=== PATIENT | male | born 1955 | race Caucasian/White ===

== ENCOUNTER 2018-09-28 08:30 | Emergency (ER) | payer BC ==
--- NOTE | 2018-09-28 08:37 | ER Report ---
History and Physical Time Seen By MD: 08:37 HPI/ROS CHIEF COMPLAINT: Cough, shortness breath HISTORY OF PRESENT ILLNESS: Patient is a 63-year-old male here with complaints of cough, shortness breath. Patient recently moved to the area from [place]. Patient reports wheezing, increased shortness breath especially with exertion. Patient does have a history of smoking. Patient is afebrile, hemodynamically stable at time of evaluation REVIEW OF SYSTEMS: Constitutional: No fever, no chills. Eyes: No discharge. ENT: No sore throat. Cardiovascular: No chest pain, no palpitations. Respiratory: + cough, + shortness of breath. Gastrointestinal: No abdominal pain, no vomiting. Genitourinary: No hematuria. Musculoskeletal: No back pain. Skin: No rashes. Neurological: No headache. Allergies: Coded Allergies: No Known Drug Allergies (Unverified , 09/28/18) Home Meds Reported Medications Nebivolol Hcl (BYSTOLIC) 2.5 Mg Tablet, 2.5 MG PO 09/28/18 Clopidogrel Bisulfate (CLOPIDOGREL) 75 Mg Tablet, 1 TAB PO QDAY, TAB 09/28/18 Alprazolam (ALPRAZOLAM) 0.5 Mg Tab.rapdis, 0.5 MG PO TID, TAB 09/28/18 Umeclidinium Brm/Vilanterol Tr (Anoro Ellipta 62.5-25 Mcg INH) 1 Each Disk.w.dev 09/28/18 Rosuvastatin Calcium (CRESTOR) 20 Mg Tablet, 20 MG PO QDAY 09/28/18 Tamsulosin Hcl (FLOMAX) 0.4 Mg Cap.er.24h, 0.4 MG PO, CAP 09/28/18 Finasteride (FINASTERIDE) 5 Mg Tablet, 5 MG PO QDAY 09/28/18 Constitutional Vital Sign - Last 24 Hours 09/28/18 09/28/18 08:38 08:55 Temp 98.0 Pulse 96 Resp 20 B/P (MAP) 155/87 Pulse Ox 98 O2 Delivery Room Air O2 Flow Rate 1.0 Physical Exam General Appearance: The patient is alert, has no immediate need for airway protection and no signs of toxicity. Uncomfortable appearing Eyes: Pupils equal and round no pallor or injection. ENT, Mouth: Mucous membranes are moist. Respiratory: Diffuse wheezing in all lung greene, cough Cardiovascular: Regular rate and rhythm. Gastrointestinal: Abdomen is soft and non tender, no masses, bowel sounds normal. Neurological: No focal neurological deficits on examination Skin: Warm and dry, no rashes. Musculoskeletal: Neck is supple non tender. Extremities are nontender, nonswollen and have full range of motion. DIFFERENTIAL DIAGNOSIS: After history and physical exam differential diagnosis was considered for shortness of breath including but not limited to pulmonary infectious process, COPD, asthma, pulmonary embolus and congestive heart failure. Medical Decision Making Data Points Result Diagram: 09/28/18 0845 09/28/18 0845 Laboratory Hematology Test 09/28/18 08:45 09/28/18 09:08 Red Blood Count 5.07 M/uL (4.00-5.60) Mean Corpuscular Volume 89.2 fL (80.0-96.0) Mean Corpuscular Hemoglobin 30.6 pg (26.0-33.0) Mean Corpuscular Hemoglobin Concent 34.3 g/dL (32.0-36.0) Red Cell Distribution Width 14.2 % (11.5-14.5) Mean Platelet Volume 9.5 fL (7.2-11.1) Neutrophils (%) (Auto) 65.3 % (39.4-72.5) Lymphocytes (%) (Auto) 21.6 % (17.6-49.6) Monocytes (%) (Auto) 8.8 % (4.1-12.4) Eosinophils (%) (Auto) 3.4 % (0.4-6.7) Basophils (%) (Auto) 0.9 % (0.3-1.4) Nucleated RBC Relative Count (auto) 0.1 /100WBC Neutrophils # (Auto) 5.1 K/uL (2.0-7.4) Lymphocytes # (Auto) 1.7 K/uL (1.3-3.6) Monocytes # (Auto) 0.7 K/uL (0.3-1.0) Eosinophils # (Auto) 0.3 K/uL (0.0-0.5) Basophils # (Auto) 0.1 K/uL (0.0-0.1) Nucleated RBC Absolute Count (auto) 0.01 K/uL Prothrombin Time 12.8 seconds (12.0-14.4) Prothromb Time International Ratio 0.97 Activated Partial Thromboplast Time 29 seconds (23-35) Sodium Level 139 mmol/L (137-145) Potassium Level 3.9 mmol/L (3.5-5.0) Chloride Level 103 mmol/L (98-107) Carbon Dioxide Level 25 mmol/L (22-30) Blood Urea Nitrogen 11 mg/dl (9-21) Creatinine 0.90 mg/dl (0.66-1.25) Glomerular Filtration Rate Calc > 60.0 Random Glucose 111 mg/dl (75-110) Calcium Level 9.7 mg/dl (8.4-10.2) Total Bilirubin 1.6 mg/dl (0.2-1.3) Aspartate Amino Transf (AST/SGOT) 37 U/L (0-35) Alanine Aminotransferase (ALT/SGPT) 44 U/L (0-56) Alkaline Phosphatase 91 U/L (0-126) Troponin I < 0.012 ng/ml B-Type Natriuretic Peptide 88 pg/ml (0-100) Total Protein 7.6 g/dl (6.3-8.2) Albumin 4.2 g/dl (3.5-5.0) Blood Gas Patient Temperature 98 DEGREES Venous Blood pH 7.37 (7.31-7.41) Venous Blood Partial Pressure CO2 40 mmHg Venous Blood Partial Pressure O2 40 mmHg Venous Blood HCO3 23 mmol/L Venous Blood Oxygen Saturation 73 % Venous Blood Base Excess -2 mmol/L Oxygen Liters/Minute 2l Chemistry Test 09/28/18 08:45 09/28/18 09:08 White Blood Count 7.8 k/uL (4.5-11.0) Red Blood Count 5.07 M/uL (4.00-5.60) Hemoglobin 15.5 g/dL (14.0-18.0) Hematocrit 45.2 % (42.0-52.0) Mean Corpuscular Volume 89.2 fL (80.0-96.0) Mean Corpuscular Hemoglobin 30.6 pg (26.0-33.0) Mean Corpuscular Hemoglobin Concent 34.3 g/dL (32.0-36.0) Red Cell Distribution Width 14.2 % (11.5-14.5) Platelet Count 204 K/uL (150-450) Mean Platelet Volume 9.5 fL (7.2-11.1) Neutrophils (%) (Auto) 65.3 % (39.4-72.5) Lymphocytes (%) (Auto) 21.6 % (17.6-49.6) Monocytes (%) (Auto) 8.8 % (4.1-12.4) Eosinophils (%) (Auto) 3.4 % (0.4-6.7) Basophils (%) (Auto) 0.9 % (0.3-1.4) Nucleated RBC Relative Count (auto) 0.1 /100WBC Neutrophils # (Auto) 5.1 K/uL (2.0-7.4) Lymphocytes # (Auto) 1.7 K/uL (1.3-3.6) Monocytes # (Auto) 0.7 K/uL (0.3-1.0) Eosinophils # (Auto) 0.3 K/uL (0.0-0.5) Basophils # (Auto) 0.1 K/uL (0.0-0.1) Nucleated RBC Absolute Count (auto) 0.01 K/uL Prothrombin Time 12.8 seconds (12.0-14.4) Prothromb Time International Ratio 0.97 Activated Partial Thromboplast Time 29 seconds (23-35) Glomerular Filtration Rate Calc > 60.0 Calcium Level 9.7 mg/dl (8.4-10.2) Total Bilirubin 1.6 mg/dl (0.2-1.3) Aspartate Amino Transf (AST/SGOT) 37 U/L (0-35) Alanine Aminotransferase (ALT/SGPT) 44 U/L (0-56) Alkaline Phosphatase 91 U/L (0-126) Troponin I < 0.012 ng/ml B-Type Natriuretic Peptide 88 pg/ml (0-100) Total Protein 7.6 g/dl (6.3-8.2) Albumin 4.2 g/dl (3.5-5.0) Blood Gas Patient Temperature 98 DEGREES Venous Blood pH 7.37 (7.31-7.41) Venous Blood Partial Pressure CO2 40 mmHg Venous Blood Partial Pressure O2 40 mmHg Venous Blood HCO3 23 mmol/L Venous Blood Oxygen Saturation 73 % Venous Blood Base Excess -2 mmol/L Oxygen Liters/Minute 2l Coagulation Test 09/28/18 08:45 Prothrombin Time 12.8 seconds Prothromb Time International Ratio 0.97 Activated Partial Thromboplast Time 29 seconds EKG/Imaging Imaging PATIENT NAME: Pete Ruby : 1955 MR: [id number] V: [id number] EXAM DATE: ORDERING PHYSICIAN: MAXIME BROWN TECHNOLOGIST: Location: [facility] Patient: Pete Ruby : 1955 Visit/Account:[id number] Date of Sevice: 09/28/2018 CHEST SINGLE AP Indication: Short of breath. Comparison: None available Findings: There are coarse interstitial opacities seen in the mid and lower lungs. This is symmetric from right to left. No consolidation or air bronchograms. In the acute setting, this could be related to interstitial edema/infiltrate. If chronic, this could reflect scarring and interstitial lung disease. A small round nodule is seen in the right lung base which appears calcified and characteristic of old granulomatous disease. No pneumothorax or pleural effusion. Heart size is normal. IMPRESSION: 1. Coarse interstitial opacities in the mid and lower lungs. If acute, this could be related to interstitial edema or interstitial infiltrate. This could also be related to chronic scarring and interstitial lung disease. Comparison with old studies is recommended. 2. No focal confluent infiltrate. 3. Findings most consistent with a calcified nodule in the right lung base characteristic of old granulomatous disease. ED Course/Re-evaluation ED Course Patient is a 63-year-old male here with complaints of cough, shortness breath, recently moved to the area from [place]. Patient does have a history significant for smoking, does have wheezing in all lung greene had moderate improvement with DuoNeb administration. Patient was given IV steroids. Troponin negative. Chest x-ray showed no acute consolidation. Patient was given scripts for inhaler, prednisone, Z-Arnoldo. Close PCP follow-up recommended. Return options provided. Decision to Disposition Date: Sep 28, 2018 Decision to Disposition Time: 11:27 Depart Departure Latest Vital Signs Vital Signs Date Time Temp Pulse Resp B/P (MAP) Pulse Ox O2 Delivery O2 Flow Rate FiO2 09/28/18 08:55 1.0 09/28/18 08:38 98.0 96 20 155/87 98 Room Air Impression: Primary Impression: COPD exacerbation Condition: Improved Disposition: HOME OR SELF-CARE New Scripts Albuterol Sulfate (PROVENTIL HFA) 6.7 Gm Inh 2 PUFF INH Q4-6H, #1 INH Prov: MAXIME BROWN DO 09/28/18 Azithromycin (Z-PACK) 250 Mg Tablet 0 PO QDAY, #6 DOSE-PACK Prov: BROWNMAXIME Cruz DO 09/28/18 Prednisone (PREDNISONE) 50 Mg Tablet 50 MG PO QDAY for 5 Days, #5 TAB Prov: MAXIME BROWN DO 09/28/18 Patient Instructions: Dyspnea (GEN) Additional Instructions: Please take Z-Arnoldo as prescribed, please take prednisone 1 tablet daily for 5 days, please use your albuterol inhaler 1-2 puffs every 4-6 hours as needed for wheezing and shortness breath. Please follow-up with your family doctor next 24- 48 hours. Please return promptly if you develop increasing shortness breath, fevers, inability keep down food or fluids. MAXIME BROWN DO Sep 28, 2018 08:37
[2018-09-28] MEDS ORDERED: ALPR-460 PO (08:38)
[2018-09-28] MEDS ORDERED: ROSU20TA24 PO (08:38)
[2018-09-28] MEDS ORDERED: CLOP75TA PO (08:38)
[2018-09-28] MEDS ORDERED: UMEC1DIS (08:38)
[2018-09-28] MEDS ORDERED: FINA5TAB67 PO (08:38)
[2018-09-28] MEDS ORDERED: TAMS0.4C25 PO (08:38)
[2018-09-28] MEDS ORDERED: NEBI2.5T PO (08:38)
[2018-09-28] MEDS ORDERED: ALBUTEROL/IPRATROPIUM 3 ML NEB NEB SCH (09:00)
[2018-09-28] MEDS ORDERED: NS(*) 0.9% 1000 ML BAG 1,000 ML IV ONE (09:00)
[2018-09-28] MEDS ORDERED: methylPREDNIS SUCC 125 MG/2ML IVP ONE (09:00)
[2018-09-28 09:13] LABS: PLATELET COUNT, AUTOMATED 204 K/uL (150-450)
[2018-09-28 09:16] LABS: INR 0.97
--- NOTE | 2018-09-28 10:22 | RADIOLOGY IMAGING REPORT ---
FAC[place] [facility] [place]IENT NAME: Pete Ruby : 1955 MR: [id number] V: [id number] EXAM DATE: ORDERING PHYSICIAN: MAXIME BROWN TECHNOLOGIST: Location: [facility] Patient: Pete Ruby : 1955 Visit/Account:[id number] Date of Sevice: 09/28/2018 CHEST SINGLE AP Indication: Short of breath. Comparison: None available Findings: There are coarse interstitial opacities seen in the mid and lower lungs. This is symmetric from right to left. No consolidation or air bronchograms. In the acute setting, this could be related to inters titial edema/infiltrate. If chronic, this could reflect scarring and interstitial lung disease. A sma ll round nodule is seen in the right lung base which appears calcified and characteristic of old gran ulomatous disease. No pneumothorax or pleural effusion. Heart size is normal. IMPRESSION: 1. Coarse interstitial opacities in the mid and lower lungs. If acute, this could be related to inter stitial edema or interstitial infiltrate. This could also be related to chronic scarring and intersti tial lung disease. Comparison with old studies is recommended. 2. No focal confluent infiltrate. 3. Findings most consistent with a calcified nodule in the right lung base characteristic of old gran ulomatous disease. Report Dictated By: Jorge A Hughes at 09/28/2018 10:16 AM Report E-Signed By: Jorge A Hughes at 09/28/2018 10:19 AM WSN:[id number]
[2018-09-28 11:30] VITALS: BP 145/71
[2018-09-28] MEDS ORDERED: AZIT-17 PO (11:31)
[2018-09-28] MEDS ORDERED: PRED50TA22 PO (11:31)
[2018-09-28] MEDS ORDERED: ALB6.7R INH (11:31)
--- NOTE | 2018-09-28 14:57 | EKG ---
FACILITY: [facility] PATIENT NAME: CRUZ DUNCAN : [id number] MR: [id number] V: [id number] EXAM DATE: ORDERING PHYSICIAN: MAXIME BROWN TECHNOLOGIST: BANDAR Test Reason : sob Blood Pressure : / mmHG Vent. Rate : 096 BPM Atrial Rate : 096 BPM P-R Int : 198 ms QRS Dur : 142 ms QT Int : 422 ms P-R-T Axes : 058 -11 017 degrees QTc Int : 533 ms Normal sinus rhythm Right bundle branch block Inferior infarct , age undetermined Abnormal ECG No previous ECGs available Confirmed by LOC DURHAM ([id number]) on 09/29/2018 8:18:53 PM Referred By: STEPHANIE Confirmed By:LOC DURHAM
== END 2018-09-28 11:52 | disposition home or self-care (01) ==
LOC: ER 08:57
DX: J44.1 Chronic obstructive pulmonary disease with (acute) exacerbation (principal)
CPT/HCPCS: 71045; 82803; 83880; 84484; 85025; 85610; 85730; 93005; 94640; 96361; 96374; 99284; J2930; J7030; J7620; 82040; 82247; 82310; 82374; 82435; 82565; 82947; 84075; 84132; 84155; 84295; 84450; 84460; 84520

== ENCOUNTER → 2018-10-17 | Outpatient (CLI) | payer BC ==
[~2018-10-17] MED LIST: ALB6.7R INH; ALPR-460 PO; ASPI-1471 PO; AZIT-17 PO; CAR6.25 PO; CHOL500062 PO; CLOP75TA PO; CYAN100088 PO; FINA5TAB67 PO; LISI-362 PO; NEBI2.5T PO; PRED50TA22 PO; ROSU20TA24 PO; TAMS0.4C25 PO; UMEC1DIS
== END ==
LOC: RESP 00:10
PROVIDERS: ATTEND Internal Medicine
DX: J44.9 Chronic obstructive pulmonary disease, unspecified (principal)
CPT/HCPCS: 94060; 94726; 94729

== ENCOUNTER → 2018-11-04 | Outpatient (CLI) | payer BC ==
[~2018-11-04] MED LIST changes: +ROSU40TA18 PO
[2018-11-04 11:44] LABS: PLATELET COUNT, AUTOMATED 204 K/uL (150-450)
[2018-11-04 12:28] LABS: LDL CHOLESTEROL 132 mg/dl
== END ==
LOC: LAB 10:49
PROVIDERS: ATTEND Internal Medicine
DX: J44.9 Chronic obstructive pulmonary disease, unspecified (principal); I10 Essential (primary) hypertension; I25.10 Atherosclerotic heart disease of native coronary artery without angina pectoris; I21.3 ST elevation (STEMI) myocardial infarction of unspecified site; E78.5 Hyperlipidemia, unspecified; J98.4 Other disorders of lung; R06.00 Dyspnea, unspecified
CPT/HCPCS: 36415; 81001; 82040; 82247; 82310; 82374; 82435; 82465; 82565; 82947; 83718; 83880; 84075; 84132; 84153; 84155; 84295; 84443; 84450; 84460; 84478; 84520; 85025

== ENCOUNTER → 2018-12-11 | Outpatient (CLI) | payer BC ==
[2018-12-11 07:59] LABS: LDL CHOLESTEROL 154 mg/dl
== END ==
LOC: LAB 07:08
PROVIDERS: ATTEND Internal Medicine Cardiovascular Disease
DX: I25.10 Atherosclerotic heart disease of native coronary artery without angina pectoris (principal)
CPT/HCPCS: 36415; 82040; 82247; 82310; 82374; 82435; 82465; 82565; 82947; 83718; 84075; 84132; 84155; 84295; 84450; 84460; 84478; 84520